=== PATIENT | male | born 2000 | race Hispanic/Latino ===

== ENCOUNTER 2020-10-18 17:55 | Emergency (ER) | payer MEDICAID, OTHER ==
[~2020-10-18] VITALS: Ht 167.6 cm; Wt 69.4 kg
[2020-10-18 18:04] VITALS: BP 129/68
[2020-10-18] MEDS ORDERED: HYDROCODONE/ACETAMINOPHEN 5/325 MG TAB PO STA (18:21)
[2020-10-18] MEDS ORDERED: KETOROLAC 30MG VIAL (30MG/ML) IM STA (18:21)
[2020-10-18 19:15] VITALS: BP 122/60
[2020-10-18] MEDS ORDERED: IBUP-2088 PO (19:37)
== END 2020-10-18 19:50 | disposition home or self-care (01) ==
LOC: EDH 17:55
DX: S42.002A Fracture of unspecified part of left clavicle, initial encounter for closed fracture (principal); Z79.899 Other long term (current) drug therapy; V19.9XXA Pedal cyclist (driver) (passenger) injured in unspecified traffic accident, initial encounter; Y93.89 Activity, other specified; Y92.89 Other specified places as the place of occurrence of the external cause; Y99.8 Other external cause status
CPT/HCPCS: 73000; 96372; 99283; J1885